=== PATIENT | female | born 1980 | race Native Hawaiian/Other Pacific Islander ===

== ENCOUNTER 2016-09-18 16:41 | Outpatient (CLI) | payer OTHER ==
[2016-09-18 17:02] LABS: PLATELET COUNT 409 K/uL (152-353)
[2016-09-18 17:31] LABS: SODIUM 135 mmol/L (136-145)
== END 2016-09-18 19:22 | disposition home or self-care (01) ==
LOC: LABW 16:41
PROVIDERS: Nurse Practitioner
DX: Z01.818 Encounter for other preprocedural examination (principal)
CPT/HCPCS: 36415; 80053; 85027; 93005

== ENCOUNTER 2016-11-08 21:16 | Emergency (ER) | payer OTHER ==
[~2016-11-08] VITALS: Ht 165.1 cm; Wt 134.7 kg
== END 2016-11-08 22:34 | disposition home or self-care (01) ==
LOC: ED 21:16
DX: T18.8XXA Foreign body in other parts of alimentary tract, initial encounter (principal); T17.228A Food in pharynx causing other injury, initial encounter; X58.XXXA Exposure to other specified factors, initial encounter; Y93.89 Activity, other specified; Y92.89 Other specified places as the place of occurrence of the external cause; Y99.8 Other external cause status
CPT/HCPCS: 99282

== ENCOUNTER 2017-02-01 11:44 | Emergency (ER) | payer OTHER ==
[~2017-02-01] VITALS: Ht 165.1 cm; Wt 127.0 kg
[2017-02-01] MEDS ORDERED: XANAX XR1 MG PO (12:22)
[2017-02-01] MEDS ORDERED: TRAM50TA PO (12:23)
[2017-02-01] MEDS ORDERED: NEXIUM40 M1 PO (12:24)
[2017-02-01] MEDS ORDERED: ALBU90AE13 INH (12:24)
[2017-02-01] MEDS ORDERED: FLONASE AL50 MCG/ACT (12:25)
[2017-02-01] MEDS ORDERED: MULT VITAMI1 PO (12:25)
[2017-02-01 12:48] LABS: PLATELET COUNT 336 K/uL (152-353)
[2017-02-01 12:52] LABS: POTASSIUM 3.5 mmol/L (3.6-5.2); SODIUM 141 mmol/L (136-145)
== END 2017-02-01 14:28 | disposition home or self-care (01) ==
LOC: ED 11:44
DX: M77.8 Other enthesopathies, not elsewhere classified (principal); M79.661 Pain in right lower leg
CPT/HCPCS: 36415; 80053; 85027; 85379; 96374; 99284

== ENCOUNTER 2017-02-26 10:46 | Outpatient (CLI) | payer OTHER ==
[~2017-02-26 10:46] MED LIST: ALBU90AE13 INH; FLONASE AL50 MCG/ACT; MULT VITAMI1 PO; NEXIUM40 M1 PO; TRAM50TA PO; XANAX XR1 MG PO
[2017-02-26 11:11] LABS: POTASSIUM 3.8 mmol/L (3.6-5.2); SODIUM 141 mmol/L (136-145)
== END 2017-02-26 19:43 | disposition home or self-care (01) ==
LOC: LABW 10:46
PROVIDERS: Physician Assistant
DX: R20.8 Other disturbances of skin sensation (principal)
CPT/HCPCS: 36415; 80048

== ENCOUNTER 2017-08-18 12:06 | Outpatient (CLI) | payer OTHER ==
[2017-08-18 13:26] LABS: PLATELET COUNT 369 K/uL (152-353)
[2017-08-18 13:39] LABS: POTASSIUM 4.1 mmol/L (3.6-5.2)
== END 2017-08-18 19:41 | disposition home or self-care (01) ==
LOC: LABW 12:06
PROVIDERS: Surgery
DX: E53.8 Deficiency of other specified B group vitamins (principal); E61.1 Iron deficiency; E87.8 Other disorders of electrolyte and fluid balance, not elsewhere classified; E51.8 Other manifestations of thiamine deficiency; E61.0 Copper deficiency; E55.9 Vitamin D deficiency, unspecified
CPT/HCPCS: 80053; 82306; 82525; 82607; 82728; 82747; 83540; 83970; 84425; 85027

== ENCOUNTER 2018-02-01 10:24 | Emergency (ER) | payer OTHER ==
[~2018-02-01] VITALS: Ht 160 cm; Wt 101.2 kg
[2018-02-01 10:34] VITALS: TEMP 98.6
[2018-02-01 12:20] LABS: PLATELET COUNT 307 K/uL (152-353)
[2018-02-01 12:24] LABS: POTASSIUM 3.7 mmol/L (3.6-5.2)
[2018-02-01 14:00] VITALS: BP 108/74
== END 2018-02-01 14:10 | disposition home or self-care (01) ==
LOC: ED 10:24
DX: N30.80 Other cystitis without hematuria (principal)
CPT/HCPCS: 36415; 74022; 80053; 81000; 85027; 96372; 99283; J1885

== ENCOUNTER 2018-03-09 11:48 | Outpatient (CLI) | payer OTHER | END 2018-03-09 21:14 | disposition home or self-care (01) | LOC: MRI 11:48 | DX: M54.5 Low back pain (principal) ==

== ENCOUNTER 2018-04-13 12:24 | Outpatient (CLI) | payer OTHER | END 2018-04-13 19:48 | disposition home or self-care (01) | LOC: MRI 12:24 | DX: M54.6 Pain in thoracic spine (principal); M54.12 Radiculopathy, cervical region | CPT/HCPCS: A9576 ==

== ENCOUNTER 2018-05-19 09:16 | Outpatient (CLI) | payer OTHER ==
[2018-05-19 09:46] LABS: PLATELET COUNT 298 K/uL (152-353)
[2018-05-19 10:50] LABS: POTASSIUM 3.8 mmol/L (3.6-5.2)
== END 2018-05-19 21:20 | disposition home or self-care (01) ==
LOC: LABW 09:16 → US 09:16
PROVIDERS: Physician Assistant
DX: R30.0 Dysuria (principal); R53.82 Chronic fatigue, unspecified; E53.8 Deficiency of other specified B group vitamins
CPT/HCPCS: 36415; 80053; 80061; 80074; 81000; 82043; 82306; 82330; 82550; 82552; 82570; 82607; 82728; 82746; 82747; 83036; 83516; 83540; 83550; 83735; 83970; 84100; 84155; 84425; 84439; 84443; 84550; 85027; 85651; 86039; 86141; 86225; 86255; 86430; 87077; 87086; 87088; 87186

== ENCOUNTER 2019-01-20 17:01 | Outpatient (CLI) | payer OTHER | END 2019-01-20 23:31 | disposition home or self-care (01) | LOC: LAB 17:01 | DX: L02.416 Cutaneous abscess of left lower limb (principal) | CPT/HCPCS: 87070; 87205 ==

== ENCOUNTER 2019-07-08 10:44 | Outpatient (CLI) | payer OTHER | END 2019-07-08 20:17 | disposition home or self-care (01) | LOC: MAMMO 10:44 | DX: Z12.31 Encounter for screening mammogram for malignant neoplasm of breast (principal) ==

== ENCOUNTER 2019-07-15 08:44 | Outpatient (CLI) | payer OTHER ==
[2019-07-15 09:26] LABS: POTASSIUM 4.3 mmol/L (3.6-5.2)
[2019-07-15 11:31] LABS: PLATELET COUNT 282 K/uL (152-353)
== END 2019-07-15 19:27 | disposition home or self-care (01) ==
LOC: LABW 08:44
PROVIDERS: Internal Medicine
DX: R53.82 Chronic fatigue, unspecified (principal)
CPT/HCPCS: 36415; 80053; 81000; 82607; 82746; 84439; 84443; 85027; 85651; 86140; 87088

== ENCOUNTER 2020-07-08 11:10 | Outpatient (CLI) | payer OTHER ==
[2020-07-08 11:33] LABS: PLATELET COUNT 305 K/uL (152-353)
[2020-07-08 12:03] LABS: POTASSIUM 3.9 mmol/L (3.6-5.2)
== END 2020-07-08 20:57 | disposition home or self-care (01) ==
LOC: LABW 11:10
PROVIDERS: ATTEND Surgery
DX: E53.8 Deficiency of other specified B group vitamins (principal); E61.1 Iron deficiency; E87.8 Other disorders of electrolyte and fluid balance, not elsewhere classified; E20.0 Idiopathic hypoparathyroidism; E51.9 Thiamine deficiency, unspecified; E61.0 Copper deficiency; E55.9 Vitamin D deficiency, unspecified
CPT/HCPCS: 36415; 80053; 82306; 82607; 82728; 82746; 83540; 83970; 84425; 85027

== ENCOUNTER 2020-08-10 14:29 | Outpatient (CLI) | payer OTHER | END 2020-08-10 21:41 | disposition home or self-care (01) | LOC: LAB 14:29 | PROVIDERS: ATTEND Surgery | DX: E53.8 Deficiency of other specified B group vitamins (principal); E61.1 Iron deficiency; E87.8 Other disorders of electrolyte and fluid balance, not elsewhere classified; E20.0 Idiopathic hypoparathyroidism; E51.9 Thiamine deficiency, unspecified; E61.0 Copper deficiency; E55.9 Vitamin D deficiency, unspecified | CPT/HCPCS: 36415; 84425 ==